=== PATIENT | male | born 2000 | race Caucasian/White ===

== ENCOUNTER 2022-10-25 19:31 | Emergency (ER) | payer BC ==
[2022-10-25 19:58] VITALS: BP 119/76; BMI 29.8
[2022-10-25] MEDS ORDERED: SODIUM CHLORIDE 0.9% 500 ML INFUS.BAG IV ONE (21:12)
[2022-10-25] MEDS ORDERED: ACETAMINOPHEN 1000 MG/100 ML BAG IVPB ONE (21:12)
[2022-10-25] MEDS ORDERED: ACETAMINOPHEN INJECTION 100 ML IVPB ONE (21:31)
[2022-10-25 21:47] LABS: BASO % 0.8 % (0-2.0); EOS % 0.2 % (0-4.5); HEMATOCRIT 46.3 % (35.4-49); HEMOGLOBIN 15.8 GM/dL (11.7-16.9); LYMPH % 27.6 % (8-40); MCHC 34.1 g/dl (32.0-35.9); MEAN CELL VOLUME 88.1 fl (80-96); MEAN PLT VOLUME 9.5 fl (7.5-11.1); MONO % 7.6 % (3.8-10.2); NEUT % 63.8 % (42.8-82.8); PLATELET COUNT 124 10^3/uL (134-434); RBC 5.26 M/mm3 (4.00-5.60); RDW 13.3 % (11.9-15.9)
[2022-10-25 22:19] LABS: CALCIUM 8.1 mg/dL (8.5-10.1)
[2022-10-25 22:20] LABS: ALBUMIN 3.7 g/dl (3.4-5.0); BLOOD UREA NITROGEN 11.6 mg/dL (7-18)
[2022-10-25 22:23] LABS: CREATININE 0.9 mg/dL (0.55-1.3)
[2022-10-25 22:49] VITALS: PULSE 85; RESP 16; TEMP 98.4
== END 2022-10-25 22:53 | disposition home or self-care (01) ==
LOC: JER 19:31
PROC: 3E033NZ Introduction of Analgesics, Hypnotics, Sedatives into Peripheral Vein, Percutaneous Approach (ICD-10-PCS; principal; 2022-10-25)
DX: R11.2 Nausea with vomiting, unspecified (principal); R50.81 Fever presenting with conditions classified elsewhere; R51.9 Headache, unspecified; M79.10 Myalgia, unspecified site; R00.0 Tachycardia, unspecified; Z20.822 Contact with and (suspected) exposure to COVID-19
CPT/HCPCS: 0241U-QW; 36415; 71045-TC-FY; 80053; 83735; 85025; 93005; 93010; 99285-25